=== PATIENT | male | born 1980 | race African-American/Black ===

== ENCOUNTER 2017-05-04 03:10 | Emergency (ER) | payer SELFPAY ==
[2017-05-04 04:04] LABS: ADD MAN DIFF? NO
[2017-05-04 04:06] LABS: BASO % 1 % (0-3); EOS # 0.1 x10^3/uL (0.0-0.7); EOS % 1 % (0-3); HEMATOCRIT 43.4 % (39.0-53.0); HEMOGLOBIN 14.4 g/dL (13.0-17.5); LYMPH # 2.3 x10^3/uL (1.0-4.8); LYMPH % 24 % (24-48); MEAN CORPUSCULAR HEMOGLOBIN 27 pg (25-35); MEAN CORPUSCULAR HGB CONC 33 g/dL (31-37); MEAN CORPUSCULAR VOLUME 81 fL (79-100); MONO # 0.8 x10^3/uL (0.0-1.1); MONO % 9 % (0-9); NEUT # 6.5 x10^3uL (1.8-7.7); NEUT % 67 % (31-73); PLATELET COUNT 217 x10^3/uL (140-400); RED BLOOD COUNT 5.34 x10^6/uL (4.30-5.70); RED CELL DISTRIBUTION WIDTH 14.1 % (11.5-14.5); WHITE BLOOD COUNT 9.7 x10^3/uL (4.0-11.0)
[2017-05-04 04:15] LABS: ANION GAP 11 (6-14); BARBITURATES NEG (NEG); BENZODIAZEPINES NEG (NEG); BLOOD UREA NITROGEN 9 mg/dL (8-26); BUN/CREATININE RATIO 7 (6-20); CALCIUM 9.1 mg/dL (8.5-10.1); CANNABINOIDS NEG (NEG); CARBON DIOXIDE 26 mmol/L (21-32); CHLORIDE 103 mmol/L (98-107); COCAINE NEG (NEG); CREATININE 1.3 mg/dL (0.7-1.3); GFR 74.8; GLUCOSE 92 mg/dL (70-99); METHADONE NEG (NEG); OPIATES NEG (NEG); PHENCYCLIDINE POS (NEG); POTASSIUM 3.8 mmol/L (3.5-5.1); SODIUM 140 mmol/L (136-145)
[2017-05-04 04:19] LABS: AMPHETAMINE/METHAMPHETAMINE NEG (NEG); ETHANOL, URINE NEG (NEG)
[2017-05-04 04:21] LABS: ALBUMIN 3.9 g/dL (3.4-5.0); ALBUMIN/GLOBULIN RATIO 1.1 (1.0-1.7); ALK PHOS 57 U/L (46-116); ALT (SGPT) 22 U/L (16-63); AST (SGOT) 16 U/L (15-37); MAGNESIUM 1.9 mg/dL (1.8-2.4); TOTAL BILIRUBIN 0.7 mg/dL (0.2-1.0); TOTAL PROTEIN 7.3 g/dL (6.4-8.2)
== END 2017-05-04 05:40 | disposition home or self-care (01) ==
LOC: ER 03:10
DX: R56.9 Unspecified convulsions (principal); F12.10 Cannabis abuse, uncomplicated
CPT/HCPCS: 36415; 70450; 80053; 80307; 83735; 85025; 93005; 99285-25

== ENCOUNTER 2017-06-07 20:00 | Emergency (ER) | payer SELFPAY ==
[2017-06-07 20:38] LABS: ANION GAP 7 (6-14); BLOOD UREA NITROGEN 9 mg/dL (8-26); BUN/CREATININE RATIO 8 (6-20); CALCIUM 9.3 mg/dL (8.5-10.1); CARBON DIOXIDE 30 mmol/L (21-32); CHLORIDE 105 mmol/L (98-107); CREATININE 1.2 mg/dL (0.7-1.3); GLUCOSE 112 mg/dL (70-99); POTASSIUM 4.1 mmol/L (3.5-5.1); SODIUM 142 mmol/L (136-145)
[2017-06-07 20:42] LABS: ETHANOL < 10 mg/dL (0-10)
[2017-06-07 20:43] LABS: ALBUMIN 4.2 g/dL (3.4-5.0); ALBUMIN/GLOBULIN RATIO 1.2 (1.0-1.7); ALK PHOS 70 U/L (46-116); ALT (SGPT) 21 U/L (16-63); AST (SGOT) 13 U/L (15-37); TOTAL BILIRUBIN 0.7 mg/dL (0.2-1.0); TOTAL PROTEIN 7.6 g/dL (6.4-8.2)
[2017-06-07 20:57] LABS: AMPHETAMINE/METHAMPHETAMINE NEG (NEG); BARBITURATES NEG (NEG); BENZODIAZEPINES NEG (NEG); CANNABINOIDS NEG (NEG); COCAINE NEG (NEG); ETHANOL, URINE NEG (NEG); METHADONE NEG (NEG); OPIATES NEG (NEG); PHENCYCLIDINE POS (NEG)
== END 2017-06-07 21:50 | disposition home or self-care (01) ==
LOC: ER 20:00
DX: F16.10 Hallucinogen abuse, uncomplicated (principal); F12.10 Cannabis abuse, uncomplicated
CPT/HCPCS: 36415; 70450; 80053; 80307; 99285-25; G0480

== ENCOUNTER 2017-08-27 05:21 | Inpatient (IN) | payer SELFPAY ==
[2017-08-27 06:04] LABS: POC GLUCOSE 134 mg/dL (70-99)
[2017-08-27 06:05] LABS: ADD MAN DIFF? NO
[2017-08-27 06:14] LABS: BASO # 0.1 x10^3/uL (0.0-0.2); BASO % 1 % (0-3); EOS # 0.3 x10^3/uL (0.0-0.7); EOS % 2 % (0-3); HEMATOCRIT 44.8 % (39.0-53.0); HEMOGLOBIN 14.5 g/dL (13.0-17.5); LYMPH # 2.7 x10^3/uL (1.0-4.8); LYMPH % 22 % (24-48); MEAN CORPUSCULAR HEMOGLOBIN 27 pg (25-35); MEAN CORPUSCULAR HGB CONC 32 g/dL (31-37); MEAN CORPUSCULAR VOLUME 84 fL (79-100); MONO # 1.8 x10^3/uL (0.0-1.1); MONO % 15 % (0-9); NEUT # 7.2 x10^3uL (1.8-7.7); NEUT % 60 % (31-73); PLATELET COUNT 173 x10^3/uL (140-400); RED BLOOD COUNT 5.31 x10^6/uL (4.30-5.70); RED CELL DISTRIBUTION WIDTH 14.4 % (11.5-14.5)
[2017-08-27 06:22] LABS: BARBITURATES NEG (NEG); BENZODIAZEPINES NEG (NEG); CANNABINOIDS NEG (NEG); COCAINE NEG (NEG); METHADONE NEG (NEG); OPIATES NEG (NEG); PHENCYCLIDINE NEG (NEG)
[2017-08-27 06:23] LABS: AMPHETAMINE/METHAMPHETAMINE NEG (NEG); ETHANOL, URINE NEG (NEG)
[2017-08-27 06:26] LABS: ANION GAP 17 (6-14); BLOOD UREA NITROGEN 12 mg/dL (8-26); BUN/CREATININE RATIO 9 (6-20); CARBON DIOXIDE 20 mmol/L (21-32); CHLORIDE 104 mmol/L (98-107); CREATININE 1.3 mg/dL (0.7-1.3); GFR 74.8; GLUCOSE 137 mg/dL (70-99); POTASSIUM 3.3 mmol/L (3.5-5.1); SODIUM 141 mmol/L (136-145)
[2017-08-27 06:27] LABS: ETHANOL < 10 mg/dL (0-10)
[2017-08-27 06:32] LABS: ALBUMIN 4.3 g/dL (3.4-5.0); ALBUMIN/GLOBULIN RATIO 1.1 (1.0-1.7); ALK PHOS 73 U/L (46-116); ALT (SGPT) 22 U/L (16-63); AST (SGOT) 14 U/L (15-37); TOTAL BILIRUBIN 0.5 mg/dL (0.2-1.0); TOTAL PROTEIN 8.3 g/dL (6.4-8.2)
[2017-08-27 06:39] LABS: BILIRUBIN,URINE NEGATIVE (NEG); CLARITY,URINE CLEAR; COLOR,URINE YELLOW; GLUCOSE,URINE 250 mg/dL (NEG); NITRITE,URINE NEGATIVE (NEG); PH,URINE 5.5; PROTEIN,URINE 30 mg/dL (NEG-TRACE); UROBILINOGEN,URINE 0.2 mg/dL (0.2 mg/dL)
[2017-08-27 07:01] LABS: BACTERIA,URINE FEW /HPF (0-FEW); RBC,URINE OCC /HPF (0-2)
[2017-08-27 07:02] LABS: AMORPHOUS SEDIMENT,UR PRESENT /HPF
[2017-08-27] MEDS: IV NORMAL SALINE 1000ML BAG 1,000 ML IV (07:10)
[2017-08-27 07:15] LABS: PARTIAL THROMBOPLASTIN TIME 21 SEC (24-38); PROTHROMBIN TIME PATIENT 12.9 SEC (11.7-14.0)
[2017-08-27] MEDS ORDERED: ACETAMINOPHEN 500 MG TABLET PO (10:15)
[2017-08-27] MEDS ORDERED: ONDANSETRON PF 4 MG/2 ML VIAL. IV (10:15)
[2017-08-27] MEDS ORDERED: IBUPROFEN 600 MG TABLET. PO (10:15)
[2017-08-27] MEDS ORDERED: HYDROcodone/APAP 5/325MG 1 TAB TABLET PO (10:15)
[2017-08-27] MEDS ORDERED: PROMETHAZINE 12.5 MG TABLET. PO (10:30)
[2017-08-27] MEDS ORDERED: DICYCLOMINE HCL 10 MG CAPSULE PO (13:00)
== END 2017-08-27 14:15 | disposition left against medical advice (07) | DRG 101 ==
LOC: ER 05:21 → 6 SOUTH 10:15
DX: G40.409 Other generalized epilepsy and epileptic syndromes, not intractable, without status epilepticus (principal); D72.829 Elevated white blood cell count, unspecified; F10.10 Alcohol abuse, uncomplicated; Z53.21 Procedure and treatment not carried out due to patient leaving prior to being seen by health care provider; F17.210 Nicotine dependence, cigarettes, uncomplicated; F12.10 Cannabis abuse, uncomplicated; Y90.0 Blood alcohol level of less than 20 mg/100 ml; S00.512A Abrasion of oral cavity, initial encounter; X58.XXXA Exposure to other specified factors, initial encounter; Y93.89 Activity, other specified; Y99.8 Other external cause status; Y92.89 Other specified places as the place of occurrence of the external cause
CPT/HCPCS: 36415; 70450; 80053; 80307; 81001; 82962; 85025; 85610; 85730; 95816; 96361; 96365; 96374; 99285; 99285-25; G0480; J1953; J2060; J7030